=== PATIENT | male | born 1930 | race Hispanic/Latino ===

== ENCOUNTER → 2018-01-27 | Outpatient (CLI) | payer MEDICARE ==
[~2018-01-27] MED LIST: ALLO300T2 PO; AMLO10TA2 PO; ASPI-555 PO; DOXA4TAB3 PO; IOPAMIDOL-370 75 ML VIAL IV ONE; LEUP30KI3 IM; LEVO125T11 PO; LOSA100T29 PO; MECL12.585 PO; SIMV10TA6 PO; TRIAMCINOLONE TP
== END | disposition home or self-care (01) ==
LOC: RAH 07:30
PROVIDERS: ATTEND Internal Medicine Gastroenterology
DX: K57.30 Diverticulosis of large intestine without perforation or abscess without bleeding (principal); R17 Unspecified jaundice
CPT/HCPCS: 74170; Q9967

== ENCOUNTER 2018-01-30 08:46 | Day surgery (SDC) | payer MEDICARE ==
[~2018-01-30] VITALS: Ht 172.7 cm; Wt 87.3 kg
[2018-01-30 11:08] VITALS: BP 134/60
[2018-01-30] MEDS ORDERED: AMLO10TA2 PO ×2 (11:37)
[2018-01-30] MEDS ORDERED: LEVO125T11 PO ×2 (11:37)
[2018-01-30] MEDS ORDERED: ALLO300T2 PO ×2 (11:37)
[2018-01-30] MEDS ORDERED: LEUP30KI3 IM ×2 (11:37)
[2018-01-30] MEDS ORDERED: SIMV10TA6 PO ×2 (11:37)
[2018-01-30] MEDS ORDERED: DOXA4TAB3 PO ×2 (11:37)
[2018-01-30] MEDS ORDERED: LOSA100T29 PO ×2 (11:37)
[2018-01-30] MEDS ORDERED: ASPI-555 PO ×2 (11:37)
[2018-01-30] MEDS ORDERED: TRIAMCINOLONE TP (11:37)
[2018-01-30] MEDS ORDERED: MECL12.585 PO (11:37)
[2018-01-30] MEDS ORDERED: SODIUM CHLORIDE 0.9% 1000ML 1,000 ML IV ONE (11:39)
[2018-01-30] MEDS ORDERED: PROPOFOL 10 MG/ML 20ML VIAL IV ONE (12:37)
[2018-01-30 12:51] VITALS: BP 109/51
== END 2018-01-30 13:40 | disposition home or self-care (01) ==
LOC: DAH 08:46 → ENDO 08:46
PROVIDERS: ATTEND Internal Medicine
DX: E80.7 Disorder of bilirubin metabolism, unspecified (principal); I89.9 Noninfective disorder of lymphatic vessels and lymph nodes, unspecified; M10.9 Gout, unspecified; E07.9 Disorder of thyroid, unspecified; E78.5 Hyperlipidemia, unspecified; I25.10 Atherosclerotic heart disease of native coronary artery without angina pectoris; I10 Essential (primary) hypertension; F41.9 Anxiety disorder, unspecified; F32.9 Major depressive disorder, single episode, unspecified; Z85.46 Personal history of malignant neoplasm of prostate; M19.90 Unspecified osteoarthritis, unspecified site; Z98.890 Other specified postprocedural states; Z98.84 Bariatric surgery status; Z79.899 Other long term (current) drug therapy; Z88.0 Allergy status to penicillin; D64.9 Anemia, unspecified
CPT/HCPCS: 43237; 93005; A4606; J2704; J7030; 43231

== ENCOUNTER → 2018-02-09 | Outpatient (CLI) | payer MEDICARE ==
[~2018-02-09] MED LIST changes: -IOPAMIDOL-370 75 ML VIAL IV ONE
== END | disposition home or self-care (01) ==
LOC: OIH 10:42
PROVIDERS: ATTEND Internal Medicine Gastroenterology
DX: R17 Unspecified jaundice (principal); R94.5 Abnormal results of liver function studies; M47.9 Spondylosis, unspecified
CPT/HCPCS: 74018

== ENCOUNTER → 2018-02-11 | Outpatient (CLI) | payer MEDICARE ==
[~2018-02-11] MED LIST changes: -MECL12.585 PO; -TRIAMCINOLONE TP
== END | disposition home or self-care (01) ==
LOC: RAH 13:53
PROVIDERS: ATTEND Internal Medicine Gastroenterology
DX: R60.0 Localized edema (principal)
CPT/HCPCS: 93970